=== PATIENT | male | born 1970 | race African-American/Black ===

== ENCOUNTER 2022-08-24 11:34 | Emergency (ER) | payer OTHER ==
[~2022-08-24] VITALS: Ht 175.3 cm; Wt 88.0 kg
[2022-08-24 11:45] VITALS: BP 157/99
[2022-08-24] MEDS ORDERED: TETANUS, DIPHTHERIA, PERTUSSIS VAC/PF 0.5ML (>10YR OLD) IM ONE (12:30)
[2022-08-24] MEDS ORDERED: BACITRACIN ZINC OINT UDPKT TOP ONE (12:30)
[2022-08-24] MEDS ORDERED: LIDOCAINE HCL/PF 1% 10 MG/ML 5ML VIAL INFIL ONE (12:30)
[2022-08-24] MEDS ORDERED: CEPH500T MT (13:51)
== END 2022-08-24 14:32 | disposition home or self-care (01) ==
LOC: ER 11:34
DX: L72.3 Sebaceous cyst (principal)
CPT/HCPCS: 10060; 90471; 90715; 99283; J3490; Z7610